=== PATIENT | female | born 1990 | race African-American/Black ===

== ENCOUNTER → 2016-06-26 | Outpatient (CLI) | payer OTHER ==
--- NOTE | ~2016-06-26 | CR63 ---
[facility] A Service of [facility] RADIOLOGY TEXT RESULTS PATIENT: IWONA GALVAN LOCATION: [facility] : [birth year] UNIT #: [id number] AGE: [address]: BRENDA TORREZ APRN SEX: F ORDER DR: [id number] [facility] [address] [place], [place] [address] [id number] O MR#: [id number] Acc #: [id number] NAME: IWONA GALVAN : 1990 SEX: F STUDY DATE/TIME: 06/26/2016 12:26 UNIT: [facility] ROOM: STUDY DESCRIPTION: CR Chest 2 View Attending Physician: Brenda Torrez Np Referring Physician: Brenda Torrez Np Ordering Physician: Brenda Torrez Np Primary Care Physician: Long Candelaria M.D. MEDICAL IMAGING REPORT This report is preliminary unless electronic signature is present EXAM Chest, 06/26/2016 HISTORY 26-year-old female patient with chest wall pain mid right side lateral right side. History of cough x1 month. FINDINGS PA and lateral chest views show normal cardiac size and configuration. Hilar structures and mediastinal contours are preserved. Bilateral lungs are expanded and clear. Costophrenic angles are preserved. Bony thorax is normal. IMPRESSION Negative chest. Dictated by... Dawson Malhotra M.D. THIS IS AN ELECTRONICALLY VERIFIED REPORT Dawson Malhotra M.D. at 06/26/2016 3:57 PM Isidra TD: 06/26/2016 15:15 JOB #: [id number] MEDICAL IMAGING REPORT Page 1 of 1 COPY
== END | disposition home or self-care (01) ==
LOC: CRAD 12:17
DX: R07.89 Other chest pain (principal)
CPT/HCPCS: 71020